=== PATIENT | male | born 1985 | race Two or more races ===

== ENCOUNTER 2019-06-30 03:40 | Emergency (ER) | payer SELFPAY ==
[2019-06-30] MEDS ORDERED: OFLOXACIN 0.3% OTIC DROPS 5 ML OT ONE (07:32)
[2019-06-30] MEDS ORDERED: AMOXICILLIN TRIHYDRATE 500 MG CAPSULE PO ONE (07:34)
[2019-06-30 08:25] VITALS: BP 145/90
--- NOTE | 2019-07-01 08:30 | ER Document Report ---
Entered by MINH DWYER SCRIBE 06/30/19 0727 Acting as scribe for:DORIS KURTZ MD ED ENT - General Chief Complaint: Ear Pain Stated Complaint: LEFT EAR PAIN Time Seen by Provider: 06/30/19 07:18 Primary Care Provider: [facility] [Provider Group] - Follow up in 3-5 days (Call today to schedule an appointment.) Mode of Arrival: Ambulatory Information source: Patient Notes: This 34 year old male patient presents to the emergency department today with complaints of left ear pain for one week. Patient states that pain radiates from his left ear to the left jaw and face. Patient reports that the pain feels like a pressure. - Related Data Allergies/Adverse Reactions: No Known Allergies Allergy (Unverified 06/30/19 03:46) Past Medical History - General Information source: Patient - Social History Smoking Status: Never Smoker Cigarette use (# per day): No Frequency of alcohol use: None Drug Abuse: None Occupation: playground worker Lives with: Family Family History: Reviewed & Not Pertinent Patient has suicidal ideation: No Patient has homicidal ideation: No - Medical History Medical History: Negative Surgical Hx: Negative Review of Systems - Review of Systems Constitutional: No symptoms reported EENT: See HPI, Ear pain - left, Ear discharge Cardiovascular: No symptoms reported Respiratory: No symptoms reported Gastrointestinal: No symptoms reported Genitourinary: No symptoms reported Male Genitourinary: No symptoms reported Musculoskeletal: No symptoms reported Skin: No symptoms reported Hematologic/Lymphatic: No symptoms reported Neurological/Psychological: No symptoms reported -: Yes All other systems reviewed and negative Physical Exam - Vital signs Vitals: Temp Pulse Resp BP Pulse Ox 98.1 F 80 16 144/81 H 97 06/30/19 03:41 06/30/19 03:41 06/30/19 03:41 06/30/19 03:41 06/30/19 03:41 - Notes Notes: Physical Exam: General: Alert, appears well. HEENT: Normocephalic. Atraumatic. PERRL. Extraocular movements intact. No posterior oropharynx erythema or exudate, airway is patent. Right TM is unable to be visualized due to soft cerumen in the external auditory canal. Left TM has debris in the external auditory canal, TM appears to be perforated with a wet grayish appearance. Neck: Supple. Non-tender. Respiratory: No respiratory distress. Clear and equal breath sounds bilaterally. Cardiovascular: Regular rate and rhythm. Abdominal: Normal Inspection. Non-tender. No distension. Normal Bowel Sounds. Back: No gross abnormalities. Extremities: Moves all four extremities. Upper extremities: Normal inspection. Normal ROM. Lower extremities: Normal inspection. No edema. Normal ROM. Neurological: Normal cognition. AAOx4. Normal speech. Psychological: Normal affect. Normal Mood. Skin: Warm. Dry. Normal color. Course - Vital Signs Vital signs: Temp Pulse Resp BP Pulse Ox 98.1 F 80 16 144/81 H 97 06/30/19 03:41 06/30/19 03:41 06/30/19 03:41 06/30/19 03:41 06/30/19 03:41 Discharge - Discharge Clinical Impression: Acute otitis media of left ear with perforation Condition: Stable Disposition: HOME, SELF-CARE Additional Instructions: Otitis Media: You have a middle ear infection (otitis media). This is usually a complication of a cold or sore throat. The middle ear cavity becomes filled with infection. Pressure and stretching of the ear drum cause pain. Antibiotics are required. A 10 day course is usually prescribed. A deco ngestant may be recommended if you have a "runny nose." You may need anesthetic drops or other pain medication. A follow-up exam may be recommended to make sure the infection has completely cleared. If the ear begins to drain, it means the ear drum has ruptured. This will usually heal spontaneously. However, it means you should keep the ear dry until re-examined by a doctor. Call the physician or return for examination at once if there is severe headache, stiff neck, confusion, increasing fever, or dizziness. You should improve significantly within two days. If you're not better, call the doctor. You appear to have a middle ear infection that resulted in perforation of your eardrum. Take the amoxicillin as prescribed. Put the ofloxacin eardrops 10 drops into the ear twice daily. Take Tylenol and ibuprofen for pain as needed. Do not get water in your ear. Call [facility] today to schedule a follow-up appointment. RETURN TO THE EMERGENCY ROOM IF ANY NEW OR WORSENING SYMPTOMS. Prescriptions: Amoxicillin Trihydrate [Amoxil 500 mg Capsule] 500 mg PO TID #30 cap Ofloxacin [Floxin 0.3% Otic Drops 5 ml] 10 drop OS BID #1 bottle Referrals: [facility] [Provider Group] - Follow up in 3-5 days (Call today to schedule an appointment.) Scribe Attestation: 06/30/19 07:35 I personally performed the services described in the documentation, reviewed and edited the documentation which was dictated to the scribe in my presence, and it accurately records my words and actions. I personally performed the services described in the documentation, reviewed and edited the documentation which was dictated to the scribe in my presence, and it accurately records my words and actions.
== END 2019-06-30 08:15 | disposition home or self-care (01) ==
LOC: ER 03:40
DX: H66.92 Otitis media, unspecified, left ear (principal); H72.92 Unspecified perforation of tympanic membrane, left ear; H92.02 Otalgia, left ear; H61.21 Impacted cerumen, right ear
CPT/HCPCS: 99282